=== PATIENT | female | born 1995 | race American Indian/Alaskan Native ===

== ENCOUNTER 2021-07-18 09:48 | Emergency (ER) | payer OTHER ==
[2021-07-18 10:31] VITALS: BP 124/89
--- NOTE | 2021-07-18 11:33 | Emergency Department Report ---
Chief Complaint: Skin Rash Stated Complaint: BOTTOM LIP/BUMP - HPI History of Present Illness: 26-year-old -[place] female presents to the emergency room for a bump to her lower lip that is been there for 1 month. Patient states the bump does not hurt no drainage. Denies any trauma to arm mild. - Exam Vital Signs: Vital Signs 07/18/21 10:29 Temperature 98.2 F Pulse Rate 89 Respiratory 16 Rate Blood Pressure 124/89 O2 Sat by Pulse 99 Oximetry Physical Exam: Patient is alert and oriented x3 no acute distress nontoxic in appearance Lower lip no swelling lesion eraser size fleshy no tenderness no swelling nonerythematous no drainage appreciated Nonlabored breathing rate is normal Ambulatory without difficulties MSE screening note: Focused history and physical exam performed. Due to findings the following was ordered: 26-year-old -[place] female presents to the emergency room for a bump to her lower lip that is been there for 1 month. Patient states the bump does not hurt no drainage. Denies any trauma to arm mild. Patient has a fleshy-like bump to her lower lip recommend to follow-up at her primary care provider at [place] or dermatology. Patient verbalized understanding ED Disposition for MSE Disposition: 01 HOME / SELF CARE / HOMELESS Is pt being admited?: No Does the pt Need Aspirin: No Condition: Stable Additional Instructions: Follow up with your Primary Care Clinic or dermatology. Referrals: PRIMARY CARE, [Primary Care Provider] - 3-5 Days [facility] [Outside] - 3-5 Days [facility] [Provider Group] - 3-5 Days
== END 2021-07-18 12:02 | disposition home or self-care (01) ==
LOC: ED 09:48
DX: R22.0 Localized swelling, mass and lump, head (principal)
CPT/HCPCS: 99281